=== PATIENT | female | born 1990 | race Caucasian/White ===

== ENCOUNTER → 2016-11-24 | Outpatient (CLI) | payer BC ==
[2015-04-26 20:01] VITALS: BP 136/81
[~2016-11-24] MED LIST: CLON0.5T3 PO; GADOBUTROL 7.5 MMOL/7.5 ML VIAL IV ONE
--- NOTE | 2016-11-24 17:10 | RAD ---
PROCEDURE MRI of the brain without and with contrast 11/24/2016 HISTORY Syncope with left-sided numbness and headaches. TECHNIQUE Unenhanced T1 weighted sagittal and axial and FLAIR, gradient echo, T2 weighted and diffusion weighted axial images of the brain were obtained. After intravenous administration of 7 cc of Gadavist, enhanced T1 weighted axial coronal images of the brain were obtained. FINDINGS The ventricles and sulci are within normal limits in size and configuration. No area of significant abnormal signal intensity is seen involving the brain parenchyma. No extra-axial fluid collection is seen. No abnormal area of contrast enhancement is noted. There is no MRI evidence of acute ischemia/infarction. The paranasal sinuses are essentially clear. Normal flow voids are seen within the major vascular structures surrounding the brain parenchyma. IMPRESSION Negative study. Electronically signed by: Ke Dixon MD (Nov 24, 2016 17:09:46)
== END | disposition home or self-care (01) ==
LOC: MRI 15:02
PROVIDERS: ATTEND Family Medicine
DX: R51 Headache (principal)
CPT/HCPCS: 70553; A9585